=== PATIENT | female | born 1985 | race Caucasian/White ===

== ENCOUNTER 2023-04-06 19:02 | Inpatient (IN) | payer OTHER ==
[2023-04-06] MEDS ORDERED: Lorazepam 2 MG/ML VIAL ONE ×3 (19:27→22:44)
[2023-04-06 19:31] LABS: #Basophils 0.1 10x3/uL (0.0-0.2); #Eosinphils 0.3 10x3/uL (0.0-0.5); #Monocytes 0.4 10x3/uL (0.0-1.1); #Neutrophils 2.7 10x3/uL (1.5-8.4); %Basophils 1.5 % (0.0-2.0); %Eosinophils 4.8 % (0.0-6.0); %Lymphocytes 42.2 % (18.0-47.0); %Monocytes 7.1 % (0.0-10.0); %Neutrophils 44.2 % (40.0-75.0); Hematocrit 34.7 % (34.9-44.5); Hemoglobin 11.6 g/dL (12.0-15.5); Mean Corpuscular HGB CONC 33.4 g/dL (32.0-36.0); Mean Corpuscular Hemoglobin 29.7 pg (27.0-33.0); Mean Platelet Volume 9.9 fl (7.4-10.4); Platelet Count 389 10x3/uL (150-450); RBC Distribution Width 13.5 % (11.5-14.5); White Blood Cell (WBC) Count 6.2 10x3/uL (3.5-10.5)
[2023-04-06 19:58] LABS: ALT (SGPT) 9 U/L (8-55); AST (SGOT) 16 U/L (5-34); Alkaline Phosphatase 35 U/L (40-110); Anion Gap 13 mmol/L (10-20); BHCG - Serum Negative (NEGATIVE); BUN (Urea Nitrogen) 4 mg/dL (7.0-18.7); Bilirubin, Total 0.2 mg/dL (0.2-1.2); Calc. Creatinine Clearance 0 mL/min (70-130); Calcium 8.9 mg/dL (7.8-10.44); Carbon Dioxide 21 mmol/L (22-29); Chloride 107 mmol/L (98-107); Estimated GFR 103; Glucose 101 mg/dL (70-105); Potassium 4.3 mmol/L (3.5-5.1); Pregs Control Bar Appear? YES (CONTROL BAR); Sodium 137 mmol/L (136-145)
[2023-04-06 19:59] LABS: Pregs Control Background? CLEAR/WHITE (CLR/WHITE)
[2023-04-06] MEDS ORDERED: Multivitamins, Adult 10 ML, Thiamine HCl 100 MG, Folic Acid 1 MG in Dextrose 5 %-0.45 %... IV SCH (22:00)
[2023-04-06 22:09] LABS: Acetaminophen Less than 10 mcg/mL (10.0-30.0); Alcohol Less than 10.0 mg/dL (Less than 10); Salicylate Less than 8.0 mg/dL (15.0-30.0)
[2023-04-06 22:31] LABS: Magnesium 2.1 mg/dL (1.6-2.6)
[2023-04-06 22:38] LABS: SARS-CoV-2 NAA Rapid Test Not Detected (NotDetected)
[2023-04-06] MEDS ORDERED: Thiamine HCl 200 MG/2 ML VIAL ONE (22:44)
[2023-04-06] MEDS ORDERED: Lorazepam 2 MG/ML VIAL IM PRN (22:56)
[2023-04-06] MEDS ORDERED: Ondansetron ODT 4 MG TAB PO PRN (22:56)
[2023-04-06] MEDS ORDERED: Electrolyte Replacement Protocol 1 EACH FS PRN (23:00)
[2023-04-06 23:18] LABS: Amphetamine Not Detected (NotDetected); Barbiturates Screen Detected (NotDetected); Benzodiazepine Screen Detected (NotDetected); Cocaine Metabolite Screen Not Detected (NotDetected); Methadone Not Detected (NotDetected); Methamphetamine Not Detected (NotDetected); Opiate Screen Not Detected (NotDetected); Oxycodone Screen Not Detected (NotDetected); Phencyclidine (PCP) Not Detected (NotDetected); THC/Cannabinoid Screen Not Detected (NotDetected); Tricyclic Screen Not Detected (NotDetected)
[2023-04-06] MEDS ORDERED: Pantoprazole 40 MG VIAL IVP SCH (23:30)
[2023-04-06] MEDS ORDERED: clonazePAM 0.5 MG TAB PO SCH (23:30)
[2023-04-06] MEDS: Lorazepam 1 MG TAB PO SCH (23:37)
[2023-04-06] MEDS: Thiamine HCl 200 MG/2 ML VIAL SLOW IVP SCH (23:38)
[2023-04-06] MEDS ORDERED: Pantoprazole 40 MG VIAL ONE (23:42)
[2023-04-06] MEDS ORDERED: clonazePAM 0.5 MG TAB ONE (23:42)
[2023-04-07] MEDS: Lacosamide 150 MG in Sodium Chloride 0.9% 50 ML IVPB SCH ×2 (00:31→12:00)
[2023-04-07 00:58] LABS: Syphilis Antibody Nonreactive (Nonreactive); Syphilis Antibody Index 0.05 S/CO (<1.00 Non-Reactive)
[2023-04-07 04:34] LABS: #Basophils 0.1 10x3/uL (0.0-0.2); #Eosinphils 0.3 10x3/uL (0.0-0.5); #Monocytes 0.5 10x3/uL (0.0-1.1); #Neutrophils 2.3 10x3/uL (1.5-8.4); %Basophils 1.4 % (0.0-2.0); %Eosinophils 5.8 % (0.0-6.0); %Lymphocytes 45.1 % (18.0-47.0); %Monocytes 7.8 % (0.0-10.0); %Neutrophils 39.7 % (40.0-75.0); Hematocrit 31.9 % (34.9-44.5); Hemoglobin 10.5 g/dL (12.0-15.5); Mean Corpuscular HGB CONC 32.9 g/dL (32.0-36.0); Mean Corpuscular Hemoglobin 29.1 pg (27.0-33.0); Mean Corpuscular Volume 88.4 fl (81.6-98.3); Mean Platelet Volume 9.6 fl (7.4-10.4); Platelet Count 389 10x3/uL (150-450); RBC Distribution Width 13.5 % (11.5-14.5); Red Blood Cell (RBC) Count 3.61 10x6/uL (3.90-5.03); White Blood Cell (WBC) Count 5.9 10x3/uL (3.5-10.5)
[2023-04-07] MEDS ORDERED: Lorazepam 1 MG TAB ONE (05:20)
[2023-04-07] MEDS: Lorazepam 1 MG TAB PO SCH (05:26)
[2023-04-07 06:04] LABS: Anion Gap 10 mmol/L (10-20); BUN (Urea Nitrogen) 4 mg/dL (7.0-18.7); Calc. Creatinine Clearance 0 mL/min (70-130); Carbon Dioxide 22 mmol/L (22-29); Chloride 108 mmol/L (98-107); Estimated GFR 116; Glucose 104 mg/dL (70-105); Phosphorus 4.5 mg/dL (2.3-4.7); Potassium 4.2 mmol/L (3.5-5.1); Sodium 136 mmol/L (136-145)
[2023-04-07] MEDS ORDERED: 1/2 NS w/KCL 20 mEq 1,000 ML IV SCH (06:30)
[2023-04-07] MEDS ORDERED: chlordiazePOXIDE HCl 25 MG CAP ONE (08:09)
[2023-04-07] MEDS ORDERED: Lorazepam 2 MG/ML VIAL ONE ×4 (08:09→14:58)
[2023-04-07] MEDS ORDERED: Folic Acid 1 MG TAB ONE (08:56)
[2023-04-07] MEDS ORDERED: clonazePAM 0.5 MG TAB ONE (08:56)
[2023-04-07] MEDS ORDERED: Pantoprazole 40 MG VIAL ONE (08:56)
[2023-04-07] MEDS ORDERED: clonazePAM 0.5 MG TAB PO SCH (09:00)
[2023-04-07] MEDS: Folic Acid 1 MG TAB PO SCH (09:00)
[2023-04-07] MEDS: Pantoprazole 40 MG VIAL IVP SCH (09:02)
[2023-04-07] MEDS ORDERED: NS 0.9% w/ 20 MEQ KCL 0 ML ONE (10:00)
[2023-04-07] MEDS ORDERED: Lorazepam 2 MG/ML VIAL SLOW IVP SCH (11:00)
[2023-04-07] MEDS ORDERED: Buprenorphine 8mg/Naloxone 2mg per 1 FILM PO SCH (11:00)
[2023-04-07] MEDS ORDERED: Lacosamide 200 MG in Sodium Chloride 0.9% 50 ML IVPB SCH (12:00)
[2023-04-07] MEDS: Multivit, Therapeutic 1 TAB PO SCH (12:15)
[2023-04-07] MEDS: Nicotine 21 MG PATCH TD SCH (12:20)
[2023-04-07] MEDS: Diazepam 10 MG/2 ML SYRINGE IVP SCH ×2 (12:30→18:52)
[2023-04-07] MEDS ORDERED: Diazepam 10 MG/2 ML SYRINGE ONE ×2 (12:34→13:31)
[2023-04-07] MEDS: LEVETIRACETAM 1500 MG/100 ML IVPB SCH ×2 (12:46→13:00)
[2023-04-07] MEDS: Sodium Chloride 0.9% 1,000 ML IV SCH (13:00)
[2023-04-07] MEDS: Lorazepam 1 MG TAB PO PRN ×2 (15:08→21:14)
[2023-04-07] MEDS: Buprenorphine 8mg/Naloxone 2mg per 1 FILM PO SCH (21:05)
[2023-04-07] MEDS: Lacosamide 200 MG in Sodium Chloride 0.9% 50 ML IVPB SCH (21:06)
[2023-04-07] MEDS: LEVETIRACETAM IVPB SCH (21:07)
[2023-04-07] MEDS: NS IVPB SCH (21:07)
[2023-04-07] MEDS ORDERED: Lorazepam 1 MG TAB PO PRN (22:56)
[2023-04-07] MEDS: Thiamine HCl 200 MG/2 ML VIAL SLOW IVP SCH (23:30)
[2023-04-08] MEDS: Diazepam 10 MG/2 ML SYRINGE IVP SCH ×3 (00:21→12:59)
[2023-04-08 07:13] VITALS: BMI 26.4
[2023-04-08] MEDS: Buprenorphine 8mg/Naloxone 2mg per 1 FILM PO SCH ×2 (08:05→20:56)
[2023-04-08] MEDS: Folic Acid 1 MG TAB PO SCH (08:06)
[2023-04-08] MEDS: Pantoprazole 40 MG VIAL IVP SCH (08:09)
[2023-04-08] MEDS: Multivit, Therapeutic 1 TAB PO SCH (08:09)
[2023-04-08] MEDS: Sodium Chloride 0.9% 1,000 ML IV SCH (08:22)
[2023-04-08] MEDS: Lacosamide 200 MG in Sodium Chloride 0.9% 50 ML IVPB SCH ×2 (08:31→20:58)
[2023-04-08] MEDS ORDERED: levETIRAcetam 500 MG/5 ML VIAL SLOW IVP SCH (09:00)
[2023-04-08] MEDS ORDERED: FLU VACC QS2023-24(6MOS UP)/PF 60 MCG/0.5 ML SYRINGE IM ONE (09:00)
[2023-04-08] MEDS: LEVETIRACETAM IVPB SCH (09:21)
[2023-04-08] MEDS: NS IVPB SCH (09:21)
[2023-04-08] MEDS ORDERED: Lorazepam 2 MG/ML VIAL SLOW IVP SCH ×2 (10:00→15:00)
[2023-04-08] MEDS: Nicotine 21 MG PATCH TD SCH (12:24)
[2023-04-08] MEDS ORDERED: Thiamine HCl 500 MG, Admixture Fee 1 EACH in Sodium Chloride 0.9% 50 ML IVPB SCH (15:00)
[2023-04-08] MEDS ORDERED: Thiamine HCl 200 MG/2 ML VIAL SLOW IVP SCH (15:00)
[2023-04-08] MEDS ORDERED: Lorazepam 1 MG TAB PO PRN (22:56)
[2023-04-08] MEDS ORDERED: Lorazepam 0.5 MG TAB PO SCH (23:30)
[2023-04-09] MEDS: Folic Acid 1 MG TAB PO SCH (08:04)
[2023-04-09] MEDS: Buprenorphine 8mg/Naloxone 2mg per 1 FILM PO SCH (08:04)
[2023-04-09] MEDS: Multivit, Therapeutic 1 TAB PO SCH (08:04)
[2023-04-09] MEDS: Pantoprazole 40 MG VIAL IVP SCH (08:06)
[2023-04-09] MEDS: Lacosamide 200 MG in Sodium Chloride 0.9% 50 ML IVPB SCH (08:29)
[2023-04-09 09:08] VITALS: BP 106/92; TEMP 98.3
[2023-04-09] MEDS ORDERED: Lorazepam 0.5 MG TAB PO PRN (22:56)
[2023-04-09] MEDS ORDERED: Thiamine 100 MG TAB PO SCH (23:00)
== END 2023-04-09 10:10 | disposition home or self-care (01) | DRG 897 ==
LOC: CSHERS 19:02 → CSHERHOLD 21:42 → CSHICU 04-07 17:57
PROVIDERS: ADMIT Family Medicine; ATTEND Internal Medicine
PROC: HZ2ZZZZ Detoxification Services for Substance Abuse Treatment (ICD-10-PCS; principal; 2023-04-06)
DX: F10.231 Alcohol dependence with withdrawal delirium (principal); R44.0 Auditory hallucinations; G40.901 Epilepsy, unspecified, not intractable, with status epilepticus; M79.89 Other specified soft tissue disorders; F11.10 Opioid abuse, uncomplicated; Z79.899 Other long term (current) drug therapy; Z80.3 Family history of malignant neoplasm of breast; Z11.52 Encounter for screening for COVID-19; W19.XXXA Unspecified fall, initial encounter; R44.1 Visual hallucinations
CPT/HCPCS: 70450; 70486; 76377; 80048; 80053; 80306; 80307; 83605; 83735; 84100; 84443; 84703; 85025; 86780; 93005; C9113; C9254; J0571; J1650; J1953; J2060; J3360; J3411; J3480; J7042; J7050